=== PATIENT | female | born 1965 | race African-American/Black ===

== ENCOUNTER 2018-11-12 17:42 | Emergency (ER) | payer OTHER ==
--- OUTSIDE RECORDS SUMMARY | 2018-11-12 18:23 | XMS REPORT | Continuity of Care Document ---
:1965 Author Organization Interface Problems Problem Status Onset Classification Date Comments Source Date Reported CPAP Active [place] 2 786.05 Active [facility] Medications Medication Details Route Status Patient Ordering Order Source Instructions Provider Date Allergies, Adverse Reactions, Alerts Substance Category Reaction Severity Reaction Status Date Comments Source type Reported Immunizations Immunization Date Given Site Status Last Updated Comments Source Results Order Results Value Reference Date Interpretation Comments Source Name Range Vital Signs Vital Sign Value Date Comments Source Encounters Location Location Encounter Encounter Reason Attending ADM DC Status Source Details Type Number For Provider Date Date Visit Outpatient [id number] 786.05 JUMANA 04/08 Active [facility] GARNER [facility] [id number] [place] 06/[address] [facility] KRELL [place] Outpatient [id number] [place] 07/[address] [facility] KRE [place] Outpatient [id number] [place] 09/[address] [facility] KRE [place] Outpatient [id number] [place] 09/[address] [facility] KRE [place] Outpatient [id number] [place] 09/[address] [facility] KRE [place] Outpatient [id number] [place] 11/[address] [facility] KRELL [facility] Outpatient [id number] CPAP JUMANA Active [facility] Procedures Procedure Code Date Perfomer Comments Source
--- OUTSIDE RECORDS SUMMARY | 2018-11-12 18:23 | XMS REPORT | Clinical Summary ---
:1965 Author Organization [facility] Address [address] [place] [address] Care Team Providers Name Role Phone Oma Colon MD Primary Care Provider Allergies Active Allergy Reactions Severity Noted Date Comments Insect Venom Swelling 05/13/2017 Lisinopril Shortness Of Breath High 02/05/2015 Morphine 02/22/2015 Other reaction(s): Hallucinations Medications Medication Sig Dispensed Refills Start End Date Status Date albuterol sulfate 1 ampule. 0 Active (PROVENTIL) 2.5 mg/0.5 mL solution for nebulization citalopram (CeleXA) 20 0 Active MG tablet 8 aspirin 81 mg chewable Chew 81 mg. 0 Active tablet amLODIPine (NORVASC) 10 TK 1 T PO QD 0 Active mg tablet 8 calcium carb/vit Take 500 mg by 0 Active D3/minerals mouth 2 (two) times (CALCIUM-VITAMIN D ORAL) a day. hydroCHLOROthiazide TK 1 T PO BID 0 Active (HYDRODIURIL) 12.5 MG 8 tablet levETIRAcetam (KEPPRA) Take 250 mg by 0 Active 250 MG tablet mouth. AMITIZA 24 mcg capsule TK 1 C PO BID 3 Active 8 tiotropium-olodaterol Inhale 1 puff. 0 Active (STIOLTO RESPIMAT) 2.5-2.5 mcg/actuation inhalation solution epINEPHrine (EPIPEN INJECT 0 Active 2-SERAFIN) 0.3 mg/0.3 mL INTRAMUSCULARLY 6 auto-injector A SINGLE DOSE UTD FOR INSECT STING. U AT THE TIME OF BITE AND CAN REPEAT UTD ON THE WAY TO HOSPITAL. ibuprofen-famotidine Take 1 tablet by 0 Active 800-26.6 mg tablet mouth once as needed. Active Problems Not on file Encounters Date Type Specialty Care Team Description 06/02/2018 Telephone Obstetrics oneyda Cuello Gynecology Raquel Membreno MD 05/31/2018 Telephone Obstetrics Nely Martinez Gynecology RN 05/27/2018 Office Visit Obstetrics oneyda Cuello, Well woman exam ( Primary Dx); Gynecology Raquel Membreno MD PCOS (polycystic ovarian syndrome); Cervical cancer screening; Breast cancer screening; Screening for osteoporosis; Premature ovarian failure 05/21/2018 Telephone Obstetrics oneyda Cuello Gynecology Raquel Membreno MD after 11/11/2017 Family History Patient is adopted Medical History Relation Name Comments Diabetes Mother Relation Name Status Comments Mother Social History Tobacco Use Types Packs/Day Years Used Date Never Smoker Smokeless Tobacco: Never Used Alcohol Use Drinks/Week oz/Week Comments Yes 4/WEEK WINE Sex Assigned at Date Recorded Not on file Job Start Date Occupation Industry Not on file Not on file Not on file Travel History Travel Start Travel End No recent travel history available. Last Filed Vital Signs Vital Sign Reading Time Taken Blood Pressure 118/72 05/27/2018 10:24 AM CDT Pulse 65 05/27/2018 10:24 AM CDT Temperature 36.6 C (97.8 F) 05/27/2018 10:24 AM CDT Respiratory Rate - - Oxygen Saturation - - Inhaled Oxygen Concentration - - Weight 92.5 kg (204 lb) 05/27/2018 10:24 AM CDT Height - - Body Mass Index - - Plan of Treatment Health Maintenance Due Date Last Done Comments CERVICAL CANCER SCREENING 1984 BREAST CANCER SCREENING 2013 COLON CANCER SCREENING 2013 SHINGLES VACCINES (1 of 2) 2013 INFLUENZA VACCINE 05/12/2018 Procedures Procedure Name Priority Date/Time Associated Diagnosis Comments HPV MRNA E6/E7 Routine 05/27/2018 11:07 AM Results for this REFLEX HPV 16, CDT procedure are in 18/45 (REFLEX) the results section. THINPREP TIS PAP Routine 05/27/2018 11:07 AM Results for this CDT procedure are in the results section. PAP W/AGE BASED Routine 05/27/2018 11:07 AM Cervical cancer Results for this SCREENING PROTOCOLS CDT screening procedure are in the results section. after 11/11/2017 Results HPV mRNA E6/E7 REFLEX HPV 16, 18/45 (05/27/2018 11:07 AM CDT) HPV mRNA e6/e7 Detected (A) Not Detected [employer] [place] Comment: This test was performed using the APTIMA HPV Assay ([employer] This assay detects E6/E7 viral messenger RNA (mRNA) from 14 high-risk HPV types (16,18,31,33,35,39,45,51,52,56,58,59,66,68). The analytical performance characteristics of this assay have been determined by [employer]. The modifications have not been cleared or approved by the FDA. This assay has been validated pursuant to the CLIA regulations and is used for clinical purposes. Resulting Agency Comment Performing Organization Information: Site ID: [id number] Name: [facility] Address: [address] [place] [phone] Director: Sasha Tanner Performing Organization Address City/[facility] Phone Number [facility] [employer] [address] [address] PAP W/AGE BASED SCREENING PROTOCOLS (05/27/2018 11:07 AM CDT) Comment [facility] Comment: This order for age-based cervical cancer and STI screening follows ACOG guidelines(PB 168, 140, SIC597). See individual assays for performing site location. Specimen Cervical Resulting Agency Comment Performing Organization Information: Site ID: [id number] Name: [facility] Address: [address] [place] [phone] Director: Dr. Ramez Hendricks Performing Organization Address [facility] Phone Number [facility] [employer] [place] [address] THINPREP TIS PAP (05/27/2018 11:07 AM CDT) Clinical information None given [facility] Date of last menstrual Comment: POSTMENOPAUSAL [facility] period [facility] Prev. pap: NONE GIVEN [facility] Prev. bx: NONE GIVEN [facility] Source None given [facility] Statement of adequacy [facility] Comment: [facility] Satisfactory for evaluation. Endocervical/transformation zone component present. General categorization (A)Comment: EPITHELIAL [facility] CELL ABNORMALITY COUNTS INCLUDE 234 BEDS AT THE [facility] Interpretation/result: (A) [facility] Comment: COUNTS INCLUDE 234 BEDS AT THE [facility] Atypical Squamous Cells of Undetermined Significance (ASC-US) Infection [facility] Comment: COUNTS INCLUDE 234 BEDS AT THE [facility] Shift in vaginal isabel suggestive of bacterial vaginosis. Comment [facility] Comment: COUNTS INCLUDE 234 BEDS AT THE [facility] This Pap test has been evaluated with computer assisted technology. Tip of collection device in vial Suggest clinical correlation and follow-up as clinically appropriate Plow Holder [facility] Comment: COUNTS INCLUDE 234 BEDS AT THE [facility] KXJ, CT(ASCP) CT screening location: [address], [place] [id number] Pathologist [facility] Comment: COUNTS INCLUDE 234 BEDS AT THE [facility] Rasheed Massey MD, Board Certified In Anatomic and Cytopathology, [phone] (electronic signature) Comment [facility] Comment: COUNTS INCLUDE 234 BEDS AT THE [facility] EXPLANATORY NOTE: The Pap is a screening test for cervical cancer. It is not a diagnostic test and is subject to false negative and false positive results. It is most reliable when a satisfactory sample, regularly obtained, is submitted with relevant clinical findings and history, and when the Pap result is evaluated along with historic and current clinical information. Resulting Agency Comment Performing Organization Information: Site ID: [id number] Name: [facility], Address: [address] [place] [phone] Director: Sasha Tanner MD Performing Organization Address City/State/Zipcode Phone Number SHELBY REESE [facility] [address] [place] [phone] after 11/11/2017 Insurance Payer Benefit Plan / Group Subscriber ID Type Phone Address [facility] AD[facility] xxxxxxxx O Advance Directives Patient has advance care planning documents on file. For more information, please contact:[place] [facility] [place] [phone]
--- NOTE | 2018-11-12 19:30 | ER ---
Nurse's Notes [facility] Name: Annelise Shine Age: 53 yrs Sex: Female : 1965 Arrival Date: 11/12/2018 Time: 17:47 Bed 19 Private MD: Anat Adam Diagnosis: Humeral Head Fracture Presentation: 11/12 18:31 Presenting complaint: Child states: She fell a week and a half ago, she was seen at the [facility] ER [place] and X-Ray did not show anything, she was still having pain so [facility]. she had that done today and her doctor called and told her that she had a fracture and to come to the emergency room. Transition of care: patient was not received from another setting of care. Onset of symptoms was October 2018. Risk Assessment: Do you want to hurt yourself or someone else? Patient reports no desire to harm self or others. Initial Sepsis Screen: Does the patient meet any 2 criteria? No. Patient's initial sepsis screen is negative. Does the patient have a suspected source of infection? No. Patient's initial sepsis screen is negative. Care prior to arrival: None. 18:31 Method Of Arrival: Ambulatory [facility] 18:31 Acuity: NICCI 4 [facility] Triage Assessment: 18:36 General: Appears in no apparent distress. comfortable, Behavior is calm, cooperative, aj1 appropriate for age. Pain: Complains of pain in anterior aspect of right shoulder and posterior aspect of right shoulder Pain currently is 10 out of 10 on a pain scale. Neuro: Level of Consciousness is awake, alert, obeys commands. Cardiovascular: Patient's skin is warm and dry. Respiratory: Airway is patent Respiratory effort is even, unlabored, Respiratory pattern is regular, symmetrical. 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 - Social history:: Smoking status: Patient/guardian denies using tobacco. - Ebola Screening: : Patient denies travel to an Ebola-affected area in the 21 days before illness onset. Screenin:00 Abuse screen: Denies threats or abuse. Denies injuries from another. rr5 19:00 Nutritional screening: No deficits noted. Tuberculosis screening: No symptoms or risk rr5 factors identified. Fall Risk Fall in past 12 months (25 points). Total Salmeron Fall Scale indicates Low Risk Score (25-44 pts). Fall prevention measures have been instituted. Side Rails Up X 2 Family Present and informed to notify staff if they need to leave bedside As available Patient and Family Educated on Fall Prevention Program and strategies. Assessment: 19:00 General: Appears in no apparent distress. uncomfortable, Behavior is calm, cooperative, rr5 appropriate for age. Pain: Complains of pain in right shoulder Pain does not radiate. Pain currently is 8 out of 10 on a pain scale. Quality of pain is described as aching, Pain began gradually, Is intermittent, Aggravated by increased activity, weight bearing. Neuro: Level of Consciousness is awake, alert, obeys commands, Oriented to person, place, time, situation, Appropriate for age. Cardiovascular: Capillary refill < 3 seconds Patient's skin is warm and dry. Respiratory: Airway is patent Respiratory effort is even, unlabored, Respiratory pattern is regular, symmetrical. GI: Abdomen is flat. : No signs and/or symptoms were reported regarding the genitourinary system. EENT: No signs and/or symptoms were reported regarding the EENT system. Derm: No signs and/or symptoms reported regarding the dermatologic system. Musculoskeletal: Capillary refill < 3 seconds, Range of motion: limited in right shoulder. 19:50 Reassessment: Patient appears in no apparent distress at this time. Patient is alert, rr5 oriented x 3, equal unlabored respirations, skin warm/dry/pink. discharge instruction given and explained without complaints made. arm sling maintained. Vital Signs: 18:36 Pulse 72; Resp 18; Temp 97.8(TE); Pulse Ox 99% on R/A; Weight 96.16 kg (R); Height 5 aj1 ft. 2 in. (157.48 cm) (R); Pain 10/10; 18:36 BP 160 / 85; aj1 18:36 Body Mass Index 38.77 (96.16 kg, 157.48 cm) [facility] ED Course: 17:47 Patient arrived in ED. mr 17:47 Anat Adam MD is Private Physician. mr 18:34 Triage completed. [facility] 18:41 [facility] Schneider [facility] 18:41 Amadou Pleitez MD is Attending Physician. [facility] 19:00 Patient has correct armband on for positive identification. Bed in low position. Call rr5 light in reach. Side rails up X2. Pulse ox on. NIBP on. 19:00 Arm band placed on left wrist. rr5 19:06 Raj Sage, TERELL is Primary Nurse. rr5 19:29 Garcia Becerril MD is Referral Physician. [facility] 19:35 Clavicle/Shoulder strap applied on right clavicle/shoulder. rr5 19:55 No provider procedures requiring assistance completed. Patient did not have IV access rr5 during this emergency room visit. Administered Medications: No medications were administered Outcome: 19:30 Discharge ordered by . [facility] 19:55 Discharged to home ambulatory, with family. rr5 19:55 Condition: stable 19:55 Discharge instructions given to patient, family, Instructed on discharge instructions, follow up and referral plans. Demonstrated understanding of instructions, follow-up care. 19:59 Patient left the ED. rr5 Signatures: Nathaly Viveros, RN RN aj Ede Schneider PA PA [facility] Albina Mark mr Raj Sage, RN RN rr5
--- NOTE | 2018-11-12 19:31 | EDPHYS ---
Physician Documentation [facility] Name: Annelise Shine Age: 53 yrs Sex: Female : 1965 Arrival Date: 11/12/2018 Time: 17:47 Bed 19 Private MD: Anat Adam ED Physician Amadou Pleitez HPI: 11/12 18:49 This 53 yrs old Black Female presents to ER via Ambulatory with complaints of Shoulder jmm Pain. 18:49 The patient or guardian complains of an injury, pain. Onset: The symptoms/episode jmm began/occurred acutely, 1.5 week(s) ago. Associated signs and symptoms: Pertinent positives: Pertinent negatives: chest pain. This is a 53 year old female that presents to the ED with right shoulder pain. Outpatient MRI revealed a fracture and was advised by PCP to go to the ED for further evaluation. . 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 - Social history:: Smoking status: Patient/guardian denies using tobacco. - Ebola Screening: : Patient denies travel to an Ebola-affected area in the 21 days before illness onset. ROS: 18:49 Constitutional: Negative for fever, chills, and weight loss, Cardiovascular: Negative jmm for chest pain, palpitations, and edema, Respiratory: Negative for shortness of breath, cough, wheezing, and pleuritic chest pain. 18:49 MS/extremity: Positive for pain. 18:49 All other systems are negative. Exam: 18:49 Constitutional: This is a well developed, well nourished patient who is awake, alert, jmm and in no acute distress. Head/Face: atraumatic. Eyes: EOMI, no conjunctival erythema appreciated ENT: Moist Mucus Membranes Neck: Trachea midline, Supple Chest/axilla: Normal chest wall appearance and motion. Cardiovascular: Regular rate and rhythm. No edema appreciated Respiratory: Normal respirations, no respiratory distress appreciated Skin: General appearance color normal 18:49 Musculoskeletal/extremity: right anterior shoulder pain, full radial pulse, compartments are soft, NVI. 18:49 Skin: Appearance: Color: normal in color. 18:49 Neuro: Orientation: is normal, Mentation: is normal, Memory: is normal, Motor: is normal, Gait: is steady. 18:49 Psych: Behavior/mood is pleasant, cooperative. Vital Signs: 18:36 Pulse 72; Resp 18; Temp 97.8(TE); Pulse Ox 99% on R/A; Weight 96.16 kg (R); Height 5 aj1 ft. 2 in. (157.48 cm) (R); Pain 10/10; 18:36 BP 160 / 85; aj1 18:36 Body Mass Index 38.77 (96.16 kg, 157.48 cm) aj1 Procedures: 18:49 Splinting: Splint applied to right arm using sling, Examined by me, post splint [facility] application: neurovascular intact, 2+ distal pulses palpable, brisk capillary refill noted, Patient tolerated well. MDM: 18:49 Patient medically screened. [facility] 18:49 Data reviewed: vital signs, nurses notes. Counseling: I had a detailed discussion with marc the patient and/or guardian regarding: the historical points, exam findings, and any diagnostic results supporting the discharge/admit diagnosis, radiology results, the need for outpatient follow up, to return to the emergency department if symptoms worsen or persist or if there are any questions or concerns that arise at home. ED course: review mri findings. 11/12 18:58 Order name: Sling; Complete Time: 19:[address] [facility] Administered Medications: No medications were administered Disposition: 11/12/18 19:30 Discharged to Home. Impression: Humeral Head Fracture. - Condition is Stable. - Discharge Instructions: How to Use a Sling. - Medication Reconciliation Form, Thank You Letter, Antibiotic Education, Prescription Opioid Use form. - Follow up: Garcia Becerril MD; When: 2 - 3 days; Reason: Recheck today's complaints, Continuance of care, Re-evaluation by your physician. Addendum: 11/15/2018 07:07 Co-signature as Attending Physician, Amadou Pleitez MD I agree with the assessment and k dr plan of care. Signatures: Nathaly Viveros, RN RN aj1 Amadou Pleitez MD MD [facility] Ede Schneider PA PA jmm Roque, Raymond, RN RN rr5 Corrections: (The following items were deleted from the chart) 11/12 19:59 19:30 11/12/2018 19:30 Discharged to Home. Impression: Humeral Head Fracture. Condition rr5 is Stable. Forms are Medication Reconciliation Form, Thank You Letter, Antibiotic Education, Prescription Opioid Use. Follow up: Garcia Becerril; When: 2 - 3 days; Reason: Recheck today's complaints, Continuance of care, Re-evaluation by your physician. marc
[2018-11-12 20:04] VITALS: BP 160/85; TEMP 97.8; O2SAT 99
== END 2018-11-12 19:59 | disposition home or self-care (01) ==
LOC: ER 17:42
DX: S42.301A Unspecified fracture of shaft of humerus, right arm, initial encounter for closed fracture (principal); I10 Essential (primary) hypertension; J44.9 Chronic obstructive pulmonary disease, unspecified; M81.0 Age-related osteoporosis without current pathological fracture; Z88.6 Allergy status to analgesic agent; Z88.5 Allergy status to narcotic agent; Z88.8 Allergy status to other drugs, medicaments and biological substances
CPT/HCPCS: 99283

== ENCOUNTER 2019-02-24 07:17 | Day surgery (SDC) | payer OTHER ==
--- OUTSIDE RECORDS SUMMARY | 2019-02-24 07:21 | XMS REPORT | Clinical Summary ---
:1965 Author Organization [facility] Address [address] [place] [address] Care Team Providers Name Role Phone Oma [...] oneyda Cuello Gynecology Raquel Membreno MD after 02/23/2018 Family History Patient is adopted Medical History [...] 2013 COLON CANCER SCREENING 2013 SHINGLES VACCINES (#1) 2013 INFLUENZA VACCINE 05/12/2019 Procedures Procedure Name Priority Date/Time Associated Diagnosis [...] procedure are in the results section. after 02/23/2018 Results HPV mRNA E6/E7 REFLEX HPV 16, 18/45 (05/27/2018 11:07 AM CDT) HPV mRNA e6/e7 Detected (A) Not Detected [facility] Comment: This test was performed using the APTIMA HPV Assay ([employer] This assay detects E6/E7 viral messenger RNA (mRNA) from 14 high-risk HPV types (16,18,31,33,35,39,45,51,52,56,58,59,66,68). The analytical performance characteristics of this assay have been determined by [employer]. The modifications have not been cleared or approved by the FDA. This assay has been validated pursuant to the CLIA regulations and is used for clinical purposes. Resulting Agency Comment Performing Organization Information: Site ID: [id number] Name: [facility] Address: [address] [place] [phone] Director: Sasha Tanner Performing Organization Address City/[facility] Phone Number [facility] [employer] [address] [address] PAP W/AGE BASED SCREENING PROTOCOLS (05/27/2018 11:07 AM CDT) Comment [facility] Comment: This order for age-based cervical cancer and STI screening follows ACOG guidelines(PB 168, 140, ABN037). See individual assays for performing site location. Specimen Cervical Resulting Agency Comment Performing Organization Information: Site ID: [id number] Name: [facility] Address: [address] [place] [phone] Director: Dr. Ramez Hendricks Performing Organization Address City/[facility] Phone Number [facility] [place] [address] THINPREP TIS PAP (05/27/2018 11:07 AM CDT) Clinical information None given [facility] Date of last menstrual Comment: POSTMENOPAUSAL [facility] period [facility] Prev. pap: NONE GIVEN [facility] Prev. bx: NONE GIVEN [facility] Source None given [facility] Statement of adequacy [facility] Comment: [facility] Satisfactory for evaluation. Endocervical/transformation zone component present. General categorization (A)Comment: EPITHELIAL [facility] CELL ABNORMALITY [facility] Interpretation/result: (A) [facility] Comment: [facility] Atypical Squamous Cells of Undetermined Significance (ASC-US) Infection [facility] Comment: [facility] Shift in vaginal isabel suggestive of bacterial vaginosis. Comment [facility] Comment: [facility] This Pap test has been evaluated with computer assisted technology. Tip of collection device in vial Suggest clinical correlation and follow-up as clinically appropriate Product Lister [facility] Comment: [facility] KXJ, CT(ASCP) CT screening location: [address], [place] [phone] Pathologist [facility] Comment: [facility] Rasheed Massey MD, Board Certified In Anatomic and Cytopathology, [phone] (electronic signature) Comment [facility] Comment: [facility] EXPLANATORY NOTE: The Pap is a screening [...] Organization Information: Site ID: [id number] Name: [facility], Address: [address] [place] [phone] Director: Sasha Tanner MD Performing Organization Address City/State/Zipcode Phone Number [facility] [address] [place] [phone] after 02/23/2018 Insurance Payer Benefit Plan / Group Subscriber ID Type Phone Address [facility] xxxxxxxx O Advance Directives Patient has advance care planning documents on file. For more information, please contact:[facility] [address] [place] [phone]
--- OUTSIDE RECORDS SUMMARY | 2019-02-24 07:21 | XMS REPORT | Continuity of Care Document ---
:1965 Author Organization Interface Problems Problem Status Onset Classification Date Comments Source Date Reported CPAP Active 04/08/20 [place] [address] Memory loss Active Problem 01/31/2019 [facility] Bacterial Resolved Problem 01/31/2019 [facility] Neuropathic Active Problem 01/31/2019 [facility] Complex partial Active Problem 01/31/2019 [facility] Edema of lower Resolved Problem 01/31/2019 [facility] Hypertension Active Problem 01/31/2019 [facility] Morbid obesity Active Problem 01/31/2019 [facility] Neuropathy Active Problem 01/31/2019 [facility] Active [facility] Medications Medication Details Route Status Patient Ordering Order Source Instructions Provider Date Allergies, Adverse Reactions, Alerts Substance Category Reaction Severity Reaction Status Date Comments Source type Reported morphine Assertion Drug Active [facility] lisinopril Assertion Drug Active [facility] Immunizations Immunization Date Given Site Status Last Updated Comments Source Results Order Results Value Reference Date Interpretation Comments Source Name Range Vital Signs Vital Sign Value Date Comments Source Encounters Location Location Encounter Encounter Reason Attending ADM DC Status Source Details Type Number For Provider Date Date Visit Outpatient [id number] 786.05 JUMANA 04/08 Active [facility] Outpatient [id number] [place] 06/09 Active [facility] KRE [place] Outpatient [id number] [place] 07/14 Active [facility] KRE [facility] Ambulatory [id number] [place] 07/14 07/14 [facility]2017 [facility] [place] [facility] [id number] [place] 09/15 Active [facility] KRE Holt Outpatient [id number] [place] 09/27 Active [facility] KRE [place] Outpatient [id number] [place] 09/29 Active [facility] KRE [place] Outpatient [id number] [place] 12/17 Active [facility] Outpatient [id number] CPAP JUMANA Active [facility] Procedures Procedure Code Date Perfomer Comments Source Gastrojejunostomy [id number] [facility]
[2019-02-24] MEDS ORDERED: Ringers Lactate 1,000 ML IV ONE (08:04)
[2019-02-24] MEDS ORDERED: STRONG IODINE SOLN 15 ML BTL TOP ONE (09:00)
[2019-02-24] MEDS ORDERED: VASOPRESSIN 20 UNIT/ML VIAL ONE (09:21)
[2019-02-24] MEDS ORDERED: LIDOCAINE 1% W/EPI 1:100,000 MDV 50 ML VIAL ONE (09:21)
[2019-02-24] MEDS ORDERED: NA CHLORIDE 0.9% 0 ML ONE (09:21)
[2019-02-24] MEDS ORDERED: PROPOFOL 200 MG/20 ML VIAL IV ONE (09:59)
[2019-02-24] MEDS ORDERED: MIDAZOLAM HCL 2 MG/2 ML INJ ONE (09:59)
[2019-02-24] MEDS ORDERED: LIDOCAINE 1% MPF 5 ML VIAL ONE (09:59)
[2019-02-24] MEDS ORDERED: FENTANYL CITR 100 MCG/2 ML ONE ×2 (09:59→10:46)
[2019-02-24] MEDS ORDERED: KETOROLAC 30 MG/ML INJ ONE (10:29)
[2019-02-24] MEDS ORDERED: ONDANSETRON 4 MG/2 ML VIAL ONE (10:29)
[2019-02-24 11:52] VITALS: TEMP 97.7
[2019-02-24 14:06] VITALS: BP 139/77; O2SAT 98
--- NOTE | 2019-02-24 14:57 | OP ---
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 Neg ative colposcopy. 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 Ne gative colposcopy. Procedures Performed: The patient is a 53-year-old with low-grade dysplasia, LSIL diagnosed. Cervic al colposcopy was performed as the Pap specimen was from the cervix. HPV was positive on cervical co lposcopy. There were no findings of abnormality. Endocervical curettage was performed initially in May where atypical cells were detected. However, on subsequent 8-month Pap, she had a low-grade L LORENA with HPV were positive, this time the colposcopy and ECC were both negative. So, there is a disc repancy in her Pap smear and her colposcopic findings, so plan was, as the patient was very intoleran t of the exam, to perform a vaginal colposcopy in the office. So, given the fact that the dysplasia was not detected vulvar, vaginal, and cervical colposcopy were to be repeated, and plan was to also p erform a LEEP because of the possibility of the dysplasia present inside the cervical canal. After e xplaining all the possibilities to the patient, option of continued observation with close followup o f the Pap smear, the patient wanted to proceed with LEEP, as well as the exam under anesthesia with c olposcopic exams under anesthesia as well. Consented and brought to the OR. Description Of Procedure: After general anesthesia was given with LMA, the patient was placed in a d orsal lithotomy position. A bivalve speculum was placed to expose the cervix. Cervix is small, so t he canal stenotic. On examination with acetic acid, the transformation zone could not be visualized. No dysplastic lesions were seen on the ectocervix. Then, the vagina was all painted with the vineg ar as well as the vulva. After waiting 2 minutes past the application, careful examination of the an terior, posterior, and lateral lares of the vagina was conducted, paying especial attention to the po sterior cul-de-sac. This was very easy to examine in this patient who has a posterior enterocele and a right lateral wall prolapse with possible a paravaginal defect, so it worked to my advantage to vi sualize it, and all the areas were well visualized, and no dysplastic areas were seen. Then, on the vulva same findings. No dysplastic lesions seen after carefully examining the labia, clitoris, inner and outer aspects of the labia, vestibule, hymen, and periurethral areas and the sulci on both later al aspects anteriorly, so this was basically a negative colposcopy all the way through from the cervi x, vagina, and the vulva. So, then proceeded to perform the LEEP procedure as no other findings were present. A small loop was taken after figuring out the anatomical layout of the cervix. Lidocaine 1% about 15 cc was injected in a circumferential fashion around the cervix and the LEEP was used to get a nice cone biopsy from the cervix. The cervical canal, outer margin was cut again, to get a better margin and all these wer e placed in a single specimen cup with the circular specimen marked at 12 o'clock. ECC was performed with a working curette. The current for cutting was used at 60 kaplan and cautery a t 30 kaplan, current with a ball cautery, the base was cauterized. Then, astringent was placed for ch emical cautery, 2 minutes of application with a Scoppette and 2 minutes with 2 Q-tips in the base of the conization. There was excellent hemostasis. All the speculum and instruments were removed. Smo ke evacuation was used to protect from HPV vapors. The patient tolerated the procedure well. EBL mi nimal. Instrument, needle, and sponge counts were correct at the end of the case. The patient to fo llow up with me in 3 weeks. HITESH/RUDY Voice ID: [id number] Report ID: [id number]
== END 2019-02-24 12:20 | disposition home or self-care (01) ==
LOC: OR 07:17
PROVIDERS: ATTEND Obstetrics & Gynecology
PROC: 0UBC7ZX Excision of Cervix, Via Natural or Artificial Opening, Diagnostic (ICD-10-PCS; principal; 2019-02-24 09:30)
DX: N87.0 Mild cervical dysplasia (principal); N81.4 Uterovaginal prolapse, unspecified; G40.309 Generalized idiopathic epilepsy and epileptic syndromes, not intractable, without status epilepticus; G47.33 Obstructive sleep apnea (adult) (pediatric); I10 Essential (primary) hypertension; J84.10 Pulmonary fibrosis, unspecified; Z79.82 Long term (current) use of aspirin; Z79.899 Other long term (current) drug therapy
CPT/HCPCS: 57522; 88305; 88307; J2704; J2250; J3010 ×2; J2405